=== PATIENT | male | born 1995 | race Caucasian/White ===

== ENCOUNTER 2019-10-17 11:47 | Emergency (ER) | payer OTHER, SELFPAY ==
[2019-10-17 11:50] VITALS: BP 135/69; PULSE 100; RESP 14; TEMP 36.6; O2SAT 100
[2019-10-17 12:52] LABS: Appearance Urine UA CLEAR; Bilirubin Urine UA NEGATIVE (NEGATIVE); Color Urine UA YELLOW; Glucose Urine UA NEGATIVE (Negative); Ketones Urine UA TRACE (NEGATIVE); Leukocyte Esterase Urine UA NEGATIVE (NEGATIVE); Nitrite Urine UA NEGATIVE (Negative); Occult Blood Urine UA NEGATIVE (Negative); Protein Urine UA NEGATIVE (Negative); RBC Urine None Seen (0-5/HPF); Urobilinogen Urine UA 0.2 E.U./dL (0.2); pH Urine UA 6.5 (4.5-8.0)
--- NOTE | 2019-10-17 12:55 | ED.MALEGU ---
HPI - Male Genitourinary <MICKIE Rivera - Last Filed: 10/17/19 14:09> General Chief complaint: Urogenital-Male Stated complaint: personal issue fluids Time Seen by Provider: 10/17/19 12:31 Source: patient Mode of arrival: Ambulatory Limitations: no limitations History of Present Illness HPI Narrative: The patient is a 24-year-old male who denies pertinent medical history and is a nonsmoker who presents with a chief complaint of 1 episode of blood in his semen yesterday. He denies any dysuria urgency frequency hematuria penile discharge, risk of sexually transmitted infections rashes testicular pain nausea vomiting diarrhea or fever. He states that he has never had this before. He denies any trauma, use of blood thinners, family history of coagulation disorders. He denies any pain with bowel movements or with sitting down. Related Data Home Medications Medication Instructions Recorded Confirmed No Known Home Medications 10/17/19 10/17/19 Allergies Allergy/AdvReac Type Severity Reaction Status Date / Time No Known Drug Allergies Allergy Verified 10/17/19 11:56 Review of Systems <MICKIE Rivera - Last Filed: 10/17/19 14:09> Review of Systems Narrative: GENERAL: Denies chills, fatigue, malaise, fever, sweats. HEENT: Denies sinus pain, ear pain, sore throat, difficulty swallowing, dizziness. RESPIRATORY: Denies dyspnea, cough, wheezing, hemoptysis, sputum. CARDIOVASCULAR: Denies chest pain, palpitations, orthopnea, edema, GASTROINTESTINAL: Denies nausea, vomiting, abdominal pain, diarrhea, constipation, melena. : See HPI MUSCULOSKELETAL: denies weakness, joint pain, or bony pain SKIN: Denies rash, skin lesions, or other NEUROLOGIC: Denies weakness, headache, numbness, change in speech, confusion, seizures, incoordination. PSYCHIATRIC: No concerning psychosocial issues. 12 point review of systems is negative except for those stated above Patient History <MICKIE Rivera - Last Filed: 10/17/19 14:09> Social History Smoking Status: Current every day smoker Smoking Status: Current every day smoker alcohol intake frequency: 0-2 drinks per day Substance Use Type: does not use Exam <MICKIE Rivera - Last Filed: 10/17/19 14:09> Narrative Exam Narrative: GENERAL: This is a well-nourished, well-developed patient, no acute distress HEAD: Atraumatic. Normocephalic. No temporal or scalp tenderness. EYES: Pupils equal round and reactive. Extraocular motions intact. No scleral icterus. No injection or drainage. ENT: Nose without bleeding, purulent drainage or septal hematoma. Throat without erythema, tonsillar hypertrophy or exudate. Uvula midline. Airway patent. Hearing aids in place NECK: Trachea midline. No JVD or lymphadenopathy. Supple, nontender, no meningeal signs. CARDIOVASCULAR: Regular rate and rhythm RESPIRATORY: Clear to auscultation. Breath sounds equal bilaterally. No wheezes, rales, or rhonchi. No cough. No increased respiratory effort. No accessory muscle use. GASTROINTESTINAL: Abdomen soft, non-tender, nondistended. No hepato-splenomegaly, or palpable masses . No guarding. EXTREMITIES: No clubbing, cyanosis, or edema. No joint tenderness, effusion, or edema noted. BACK: Nontender without deformity or crepitance. No flank tenderness. NEURO: AOx3. SKIN: No rash or erythema. : Done with Indira CANSECO at bedside, no pain to prostate palpation on rectal exam, no visual penile drainage, no visible sores or rashes on dental, cremasteric reflex intact bilaterally. No pain to testicular palpation. Initial Vital Signs Initial Vital Signs: Vital Signs Temperature 97.9 F 10/17/19 11:50 Pulse Rate 100 H 10/17/19 11:50 Respiratory Rate 14 10/17/19 11:50 Blood Pressure 135/69 10/17/19 11:50 Pulse Oximetry 100 10/17/19 11:50 <Andra Hardy DO - Last Filed: 10/20/19 07:02> Initial Vital Signs Initial Vital Signs: Vital Signs Temperature 97.9 F 10/17/19 11:50 Pulse Rate 100 H 10/17/19 11:50 Respiratory Rate 14 10/17/19 11:50 Blood Pressure 135/69 10/17/19 11:50 Pulse Oximetry 100 10/17/19 11:50 Course <ISSAC Rivera-BC - Last Filed: 10/17/19 14:09> Orders Ordered: ED Orders 10/17/19 12:05 Chlamydia Gonorrhea PCR -URINE Stat Urinalysis and Microscopic Stat Vital Signs Vital signs: Vital Signs - 8 hr 10/17/19 11:50 Temperature 97.9 F Pulse Rate 100 H Respiratory Rate 14 Blood Pressure 135/69 Pulse Oximetry 100 <Andra Hardy DO - Last Filed: 10/20/19 07:02> Orders Ordered: ED Orders 10/17/19 12:05 Chlamydia Gonorrhea PCR -URINE Stat Urinalysis and Microscopic Stat Vital Signs Vital signs: Vital Signs - 8 hr 10/17/19 11:50 Temperature 97.9 F Pulse Rate 100 H Respiratory Rate 14 Blood Pressure 135/69 Pulse Oximetry 100 MDM - Male Genitourinary <ISSAC Rivera-BC - Last Filed: 10/17/19 14:09> Lab Data Labs: Lab Results 10/17/19 10/17/19 Range/Units 12:05 12:05 Urine Color Yellow Urine Appearance Clear Urine pH 6.5 (4.5-8.0) Ur Specific [place] 1.020 (1.000-1.035) Urine Protein Negative (Negative) Urine Glucose (UA) Negative (Negative) g/dL Urine Ketones Trace H (NEGATIVE) Urine Occult Blood Negative (Negative) Urine Nitrate Negative (Negative) Urine Bilirubin Negative (NEGATIVE) Urine Urobilinogen 0.2 (0.2) E.U./dL Ur Leukocyte Esterase Negative (NEGATIVE) Urine RBC None seen (0-5/HPF) Urine WBC 0-1/hpf (0-5/HPF) Ur Squamous Epith Cells 0-1 /hpf (0-5/HPF) Urine Bacteria Occasional (0-1) (None) Ur Culture Indicated? Cult not indicated Ur Chlamydia DNA (PCR) Not detected N gonorrhoeae DNA (PCR) Not detected [facility] Narrative Medical decision making narrative: The patient is a 24-year-old male who presents with a chief complaint of a single episode of blood in his sperm yesterday. He has no indications of prostatitis as he has no pain to prostate palpation, no rectal pressure, normal urinalysis. His urine shows no signs of infection. Gonorrhea chlamydia are negative and he states he is at low risk of sexually transmitted infections. I discussed at length the importance of following up with primary care provider, reassurance provided as per up-to-date recommendations. Discussed at length coming back to the emergency department for any acute concerns. Patient has no questions or concerns upon discharge and states understanding of return precautions as well as follow-up care. <Andra Hardy, DO - Last Filed: 10/20/19 07:02> Lab Data Labs: Lab Results 10/17/19 10/17/19 Range/Units 12:05 12:05 Urine Color Yellow Urine Appearance Clear Urine pH 6.5 (4.5-8.0) Ur Specific [place] 1.020 (1.000-1.035) Urine Protein Negative (Negative) Urine Glucose (UA) Negative (Negative) g/dL Urine Ketones Trace H (NEGATIVE) Urine Occult Blood Negative (Negative) Urine Nitrate Negative (Negative) Urine Bilirubin Negative (NEGATIVE) Urine Urobilinogen 0.2 (0.2) E.U./dL Ur Leukocyte Esterase Negative (NEGATIVE) Urine RBC None seen (0-5/HPF) Urine WBC 0-1/hpf (0-5/HPF) Ur Squamous Epith Cells 0-1 /hpf (0-5/HPF) Urine Bacteria Occasional (0-1) (None) Ur Culture Indicated? Cult not indicated Ur Chlamydia DNA (PCR) Not detected N gonorrhoeae DNA (PCR) Not detected Discharge Plan Departure Patient Disposition: Home Clinical Impression: H/O abnormal semen Discharge Date/Time: 10/17/19 14:04 Instructions: DI for Blood in Semen Activity Restrictions/Additional Instructions: Your workup today came back normal. Please follow-up with primary care provider the next few days Please come back to emergency department for any acute concerns Prescriptions: No Action No Known Home Medications RF: 0 Referrals: [facility] [Provider Group]
[2019-10-17 13:01] LABS: Squamous Epithelial Cell Urine 0-1 /HPF (0-5/HPF); WBC Urine 0-1/HPF (0-5/HPF)
[2019-10-17 13:02] LABS: Bacteria Urine Occasional (0-1); Culture Indicated Urine Cult Not Indicated
[2019-10-17 13:50] LABS: Urine N gonorrhoeae NOT DETECTED
[2019-10-17 13:51] LABS: Urine Chlamydia NOT DETECTED
== END 2019-10-17 14:04 | disposition home or self-care (01) ==
PROVIDERS: Emergency Medicine; Emergency Provider Nurse Practitioner Family
DX: R88.8 Abnormal findings in other body fluids and substances (principal)
CPT/HCPCS: 81001; 87491; 87591; 99281; 99282